=== PATIENT | female | born 1980 | race Two or more races ===

== ENCOUNTER 2020-01-10 18:39 | Inpatient (IN) | payer MEDICAID, OTHER ==
[~2020-01-10] VITALS: Ht 144.8 cm; Wt 124.6 kg
[2020-01-10 19:50] LABS: Basophils # (auto) 0 10 ^3/uL (0-0.2); Basophils % (auto) 0.7 % (0.0-2.0); Eosinophils # (auto) 0.1 10 ^3/uL (0-0.8); Hematocrit 43.4 % (36.0-46.0); Hemoglobin 14.4 g/dL (12.2-16.2); Lymphocytes # (auto) 1.5 10 ^3/uL (0.4-5.4); Lymphocytes % (auto) 28.9 % (10.0-50.0); Mean Corpuscular Hemoglobin 30.9 pg (28.0-32.0); Mean Corpuscular Hgb Conc. 33.2 g/dL (32.0-36.0); Mean Corpuscular Volume 93.2 fL (80.0-100.0); Monocytes # (auto) 0.5 10 ^3/uL (0-1.3); Monocytes % (auto) 9.5 % (0.0-12.0); Neutrophils # (auto) 3.1 10 ^3/uL (1.6-8.6); Neutrophils % (auto) 59.9 % (37.0-80.0); Nucleated Red Blood Cells % 0.1 %; Platelet Count (auto) 146 10^3/uL (140-450); Red Blood Cells 4.66 10^6/uL (4.0-5.20); White Blood Cell 5.2 10^3/uL (4.4-10.8)
[2020-01-10] MEDS ORDERED: SODIUM CHLORIDE 0.9% 1,000 ML IVB ONE (20:13)
[2020-01-10 20:15] LABS: Acetaminophen < 2.0 ug/mL (10-30); Albumin 3.2 g/dL (3.4-5.0); Anion Gap 6 (5-15); Blood Alcohol < 3.0 mg/dL (0-5); Blood Urea Nitrogen 12 mg/dL (7-18); Calcium 8.2 mg/dL (8.5-10.1); Carbon Dioxide 26 mmol/L (21-32); Chloride 109 mmol/L (98-107); Glucose 150 mg/dL (74-106); Potassium 3.5 mmol/L (3.5-5.1); Salicylate < 1.7 mg/dL (2.8-20.0); Sodium 141 mmol/L (136-145)
[2020-01-10 20:19] LABS: Alanine Aminotransferase 25 U/L (13-56); Alkaline Phosphatase 71 U/L (45-117); Aspartate Aminotransferase 18 U/L (15-37); BUN/Creatinine Ratio 13.5; Bilirubin, Total 0.3 mg/dL (0.2-1.0); GFR African American 91 mL/min; GFR Non-African American 75 mL/min; Total Protein 6.7 g/dL (6.4-8.2)
[2020-01-10 22:23] LABS: Urine Bacteria NONE SEEN /hpf (None Seen); Urine Blood 1+ /uL (Negative); Urine Mucus FEW (None Seen); Urine Specific Gravity 1.029 (1.001-1.035); Urine WBC 10 /hpf (0 - 5)
[2020-01-10 23:27] LABS: Alcohol, Urine < 3.0 mg/dL (0-10); Amphetamine Screen, Urine NEGATIVE (NEGATIVE); Barbiturate Scree,Urine NEGATIVE (NEGATIVE); Benzodiazephine Screen, Urine NEGATIVE (NEGATIVE); Cannabinoid Screen, Urine NEGATIVE (NEGATIVE); Cocaine Screen, Urine NEGATIVE (NEGATIVE); Opiate Scree,Urine NEGATIVE (NEGATIVE); Phencyclidine Screen, Urine NEGATIVE (NEGATIVE)
[2020-01-10] MEDS ORDERED: SODIUM CHLORIDE 0.9% 1,000 ML IV ONE (23:45)
[2020-01-11] MEDS ORDERED: DEXTROSE (50%) 50ML SYRG IV PRN (02:30)
[2020-01-11] MEDS: SODIUM CHLORIDE 0.9% 1,000 ML IV SCH ×3 (02:58→22:32)
[2020-01-11] MEDS: InsuLIN REG 1unit/0.01ml Soln (100units/ml) SC SCH ×5 (04:00→20:47)
[2020-01-11] MEDS: ACCU-CHEK COMFORT CURVE STRIP VI SCH ×5 (04:06→20:47)
[2020-01-11] MEDS: cefTRIAXone 1GM/50ML D5W 50 ML IV SCH (09:20)
[2020-01-11 11:17] LABS: Basophils # (auto) 0 10 ^3/uL (0-0.2); Hemoglobin 14.2 g/dL (12.2-16.2); Monocytes # (auto) 0.5 10 ^3/uL (0-1.3); Neutrophils # (auto) 5.3 10 ^3/uL (1.6-8.6); Nucleated Red Blood Cells % 0.1 %
[2020-01-11 11:20] LABS: Basophils % (auto) 0.5 % (0.0-2.0); Eosinophils # (auto) 0 10 ^3/uL (0-0.8); Eosinophils % (auto) 0.2 % (0.0-7.0); Hematocrit 43.7 % (36.0-46.0); Lymphocytes # (auto) 0.9 10 ^3/uL (0.4-5.4); Lymphocytes % (auto) 13.9 % (10.0-50.0); Mean Corpuscular Hemoglobin 31.4 pg (28.0-32.0); Mean Corpuscular Hgb Conc. 32.6 g/dL (32.0-36.0); Mean Corpuscular Volume 96.4 fL (80.0-100.0); Monocytes % (auto) 7.5 % (0.0-12.0); Neutrophils % (auto) 77.9 % (37.0-80.0); Platelet Count (auto) 47 10^3/uL (140-450); Red Blood Cells 4.53 10^6/uL (4.0-5.20); Red Cell Distribution Width 14.7 % (11.8-14.3); White Blood Cell 6.8 10^3/uL (4.4-10.8)
[2020-01-11 15:15] LABS: Calcium 7.9 mg/dL (8.5-10.1); Potassium 3.9 mmol/L (3.5-5.1)
[2020-01-11 15:18] LABS: BUN/Creatinine Ratio 13.2
[2020-01-11] MEDS ORDERED: LORazepam 2MG/ML-1ML VIAL IV PRN (20:30)
[2020-01-11] MEDS ORDERED: MIDAZOLAM HCL 1MG/1ML-2 ML VIAL IM PRN (20:45)
[2020-01-11 21:37] LABS: INR 1.02 (0.9-1.15)
[2020-01-12] MEDS: ACCU-CHEK COMFORT CURVE STRIP VI SCH ×4 (00:20→11:14)
[2020-01-12] MEDS: InsuLIN REG 1unit/0.01ml Soln (100units/ml) SC SCH ×4 (04:00→11:13)
[2020-01-12 07:39] LABS: Basophils # (auto) 0.1 10 ^3/uL (0-0.2); Eosinophils # (auto) 0.1 10 ^3/uL (0-0.8); Eosinophils % (auto) 1.2 % (0.0-7.0); Hematocrit 40.5 % (36.0-46.0); Hemoglobin 13.4 g/dL (12.2-16.2); Lymphocytes % (auto) 20.7 % (10.0-50.0); Mean Corpuscular Hemoglobin 30.9 pg (28.0-32.0); Mean Corpuscular Volume 93.5 fL (80.0-100.0); Monocytes # (auto) 0.6 10 ^3/uL (0-1.3); Monocytes % (auto) 10.9 % (0.0-12.0); Neutrophils # (auto) 3.4 10 ^3/uL (1.6-8.6); Neutrophils % (auto) 66.2 % (37.0-80.0); Nucleated Red Blood Cells % 0.1 %; Platelet Count (auto) 141 10^3/uL (140-450); Red Blood Cells 4.33 10^6/uL (4.0-5.20); Red Cell Distribution Width 14.5 % (11.8-14.3); White Blood Cell 5.1 10^3/uL (4.4-10.8)
[2020-01-12 07:56] LABS: BUN/Creatinine Ratio 13.2; Calcium 8.2 mg/dL (8.5-10.1); Potassium 3.6 mmol/L (3.5-5.1)
[2020-01-12] MEDS: SODIUM CHLORIDE 0.9% 1,000 ML IV SCH ×2 (08:13→18:31)
[2020-01-12] MEDS: cefTRIAXone 1GM/50ML D5W 50 ML IV SCH (09:42)
--- NOTE | 2020-01-12 10:48 | NUR ---
assessment Per consult help to get patient contact information. Samina MURRAY was able to speak with patient and she gave her sister Karla [phone]. The number given is out of order. No other contact in the system and no other prior visits. Addendum: 01/12/20 at 1052 by Yokasta Yap Amended: Links added.
--- NOTE | 2020-01-13 00:57 | NUR ---
Patient Brought to Unit from ER Via Wheelchair Patient AOx4, sides rails up x2 and padded w/ HOB at 30 degrees. Bed locked in lowest position, call light within reach. Sitter at bedside, will continue to monitor.
[2020-01-13 01:00] VITALS: BP_SYST 124; BP_SYST 127; BP_DIAS 77; BP_DIAS 85
[2020-01-13] MEDS ORDERED: DIVA500T53 PO (01:59)
[2020-01-13] MEDS ORDERED: DIPH-515 PO (01:59)
[2020-01-13] MEDS ORDERED: RIVA20TA PO (01:59)
[2020-01-13] MEDS ORDERED: QUET25TA37 PO (01:59)
[2020-01-13] MEDS: SODIUM CHLORIDE 0.9% 1,000 ML IV SCH (04:21)
[2020-01-13 05:06] VITALS: BP 111/74
[2020-01-13 06:18] LABS: Basophils # (auto) 0 10 ^3/uL (0-0.2); Eosinophils # (auto) 0.1 10 ^3/uL (0-0.8); Eosinophils % (auto) 2.6 % (0.0-7.0); Hematocrit 41.1 % (36.0-46.0); Hemoglobin 13.8 g/dL (12.2-16.2); Lymphocytes # (auto) 0.9 10 ^3/uL (0.4-5.4); Lymphocytes % (auto) 20.6 % (10.0-50.0); Mean Corpuscular Hemoglobin 31.4 pg (28.0-32.0); Mean Corpuscular Hgb Conc. 33.6 g/dL (32.0-36.0); Mean Corpuscular Volume 93.5 fL (80.0-100.0); Monocytes # (auto) 0.6 10 ^3/uL (0-1.3); Monocytes % (auto) 13.2 % (0.0-12.0); Neutrophils # (auto) 2.7 10 ^3/uL (1.6-8.6); Neutrophils % (auto) 62.6 % (37.0-80.0); Platelet Count (auto) 130 10^3/uL (140-450); Red Blood Cells 4.39 10^6/uL (4.0-5.20); White Blood Cell 4.3 10^3/uL (4.4-10.8)
[2020-01-13 06:32] LABS: Potassium 3.8 mmol/L (3.5-5.1)
[2020-01-13 06:40] LABS: BUN/Creatinine Ratio 14.8
[2020-01-13 09:00] VITALS: BP 109/66
[2020-01-13] MEDS: cefTRIAXone 1GM/50ML D5W 50 ML IV SCH (10:01)
[2020-01-13] MEDS ORDERED: LACTULOSE 20Gm/30ML SOLN PO ONE (12:15)
[2020-01-13] MEDS: HYDROcodone-ACET 5/325MG TAB PO PRN ×3 (12:51→22:49)
[2020-01-13 13:00] VITALS: BP 122/83
--- NOTE | 2020-01-13 13:00 | NUR ---
Lactulose refused Patient refused lactulose stating she had a BM today.
--- NOTE | 2020-01-13 14:00 | NUR ---
TELE PSYCH CONSULT was done this morning. Have not received report printout yet.
--- NOTE | 2020-01-13 14:03 | NUR ---
assessment Patient is a 40 year old female who is alert and oriented. Prior to admission patient lived at a [facility] on [facility] and needed assistance. Per patient she has no DME. Patient informed me she had been hearing voices telling her to kill herself. Patient informed me she took a bottle of pills trying to do as the voices told her. Patient informed me she has a psychiatrist Dr Jean Baptiste and she has seen her recently, but never told her about the voices. Patient informed me she was scared to tell. Patient has a history of schizophrenia. I informed patient of how important it is to communicate with her psychiatrist at all times. Patient is unstable at this time and cannot make a safety plan. Patient will need a tele psych and . I will follow up as appropriate. Addendum: 01/13/20 at 1410 by Yokasta MICHAEL Amended: Links added.
--- NOTE | 2020-01-13 15:38 | NUR ---
Tele Psych report Got ahold of them regarding report. They said they would fax it over. Gave them the [place] fax #. Awaiting report. Will place in chart when received.
--- NOTE | 2020-01-13 16:49 | NUR ---
TELE PSYCH REPORT - Contacted Dr. Santana regarding Tele Psych report recommendation for inpatient psych service. She said to put in a SS consult regarding this. Will also notify Charge nurse.
[2020-01-13 17:29] VITALS: BP 111/64
--- NOTE | 2020-01-13 19:20 | NUR ---
Opening Shift Note Assumed Patient Care from Monika Black RN. Patient is alert and oriented. Bed locked in lowest position w/ HOB at 30 degrees and call light within reach. Bed locked in lowest position. Sitter is at bedside. Patient has no s/s or distress or SOB. Patient complains of right arm and leg pain from falling at home. Patient given pain medication as prescribed for pain. Will continue to monitor.
--- NOTE | 2020-01-13 20:40 | NUR ---
Patient Complains of Pain Patient given [place] as prescribed for pain at 1922. Patient is still complaining of right side pain on arm and leg from falling at home before coming to hospital. Patient described pain saying, "My right arm and leg is throbbing and I need something stronger." Patient request stronger medication. Hospitalist paged at this time.
--- NOTE | 2020-01-13 21:30 | NUR ---
Hospitalist called back Ольга MURRAY took call. Per hospitalist, due to patient overdosing on anti-seizure medication at home and reason for admission, stronger pain medication should not be prescribed at this time. I spoke with patient regarding hospitalist response. Patient said "okay."
[2020-01-13 22:00] VITALS: BP 112/71
[2020-01-14 05:00] VITALS: BP 115/67
[2020-01-14 08:00] VITALS: BP 113/64
[2020-01-14 09:00] VITALS: BP 113/64
[2020-01-14] MEDS ORDERED: Ensure Enlive Strawberry 8oz Bottle PO ONE (10:00)
[2020-01-14] MEDS: cefTRIAXone 1GM/50ML D5W 50 ML IV SCH (10:12)
[2020-01-14] MEDS: HYDROcodone-ACET 5/325MG TAB PO PRN ×3 (10:13→21:10)
--- NOTE | 2020-01-14 12:49 | NUR ---
Est energy needs 8335-0689 kcal (30-35 kcal/kg IBW 44.3kg) Est protein needs 44-66g (1-1.5g/kg IBW 44.3kg) Will reassess prn. Addendum: 01/14/20 at [address] Amended: Links added.
[2020-01-14 13:01] VITALS: BP 113/85
[2020-01-14 17:00] VITALS: BP 120/82
[2020-01-14] MEDS: Ensure Enlive Strawberry 8oz Bottle PO SCH (17:48)
--- NOTE | 2020-01-14 19:45 | NUR ---
Opening Shift Note Assumed care of patient, awake and alert. No S/S of distress/SOB or pain. sitter at bedside for patient safety due to suicidal attempt OD on [place] and danger to self. Instructed on POC and to call for assist PRN, will continue to monitor for changes Q1hr and PRN.
--- NOTE | 2020-01-14 20:51 | NUR ---
NEURO DR SCHMIDT HERE TO SEE PATIENT UPDATED HIM ON PATIENT TELEPSYCH RECOMMENDATIONS. Addendum: 01/15/20 at 0654 by MILAGRO GONZALEZ RN RN INFORMED DR SCHMIDT PATIENT WAS COMPLANING OF THROBBING HEADACHE AND THAT PATIENT HAS SHUNT TO HEAD AND WAS TOLD IT NEEDED TO BE CHANGED.
[2020-01-14 22:00] VITALS: BP 115/66
[2020-01-14] MEDS: lamoTRIgine 25 MG TAB PO SCH (22:00)
[2020-01-15 05:00] VITALS: BP 101/70
--- NOTE | 2020-01-15 06:54 | NUR ---
PATIENT LYING IN BED ASLEEP WITH SITTER AT BEDSIDE FOR PATIENT SAFETY. WILL CONTINUE TO MONITOR PATIENT
[2020-01-15] MEDS: Ensure Enlive Strawberry 8oz Bottle PO SCH ×2 (08:00→17:34)
[2020-01-15 08:10] VITALS: BP 119/63
[2020-01-15] MEDS: Glucerna Carbsteady SHAKE Vanilla 8oz PO SCH ×3 (08:25→17:34)
[2020-01-15 09:00] VITALS: BP 119/63
[2020-01-15] MEDS: lamoTRIgine 25 MG TAB PO SCH ×2 (11:24→19:50)
[2020-01-15] MEDS: cefTRIAXone 1GM/50ML D5W 50 ML IV SCH (11:24)
[2020-01-15 13:00] VITALS: BP 113/69
[2020-01-15 17:00] VITALS: BP 115/67
--- NOTE | 2020-01-15 17:10 | NUR ---
I faxed [phone] application/tele psych consult and clinical information to [facility].
--- NOTE | 2020-01-15 18:05 | NUR ---
COVID Swab specimen sent to Laboratory.
--- NOTE | 2020-01-15 18:51 | NUR ---
Dr. Benton came over for follow up Neurology Consult.
[2020-01-15] MEDS ORDERED: LAMO25TA2 PO (19:45)
[2020-01-15] MEDS: ONDANSETRON HCL 4 MG/2 ML VIAL IV PRN (19:49)
[2020-01-15] MEDS: HYDROcodone-ACET 5/325MG TAB PO PRN (19:49)
[2020-01-15 22:00] VITALS: BP 118/70
[2020-01-16 05:00] VITALS: BP 119/64
[2020-01-16 05:29] LABS: Hematocrit 45.7 % (36.0-46.0); Hemoglobin 15.4 g/dL (12.2-16.2); Mean Corpuscular Hemoglobin 31.2 pg (28.0-32.0); Mean Corpuscular Hgb Conc. 33.6 g/dL (32.0-36.0); Mean Corpuscular Volume 92.9 fL (80.0-100.0); Platelet Count (auto) 148 10^3/uL (140-450); Red Blood Cells 4.92 10^6/uL (4.0-5.20); Red Cell Distribution Width 14.1 % (11.8-14.3); White Blood Cell 4.7 10^3/uL (4.4-10.8)
[2020-01-16 05:30] LABS: Basophils % (manual) 0 (0.0-2.0); Blast Cells 0; Metamyelocytes % 0; Myelocytes % 0; Promyelocytes % 0; Reactive Lymphocytes 0
[2020-01-16 05:46] LABS: Potassium 3.9 mmol/L (3.5-5.1)
[2020-01-16 05:49] LABS: BUN/Creatinine Ratio 16.3; Calcium 8.6 mg/dL (8.5-10.1)
[2020-01-16 06:29] LABS: Band Neutrophils % (manual) 6; Eosinophils % (manual) 1 (0-7); Lymphocytes % (manual) 34 (10.0-50.0); Monocytes % (manual) 12 (0-12)
--- NOTE | 2020-01-16 07:30 | NUR ---
Opening Shift Note Assumed care of patient, awake and alert. No S/S of distress/SOB or pain. Instructed on POC and to call for assist PRN, will continue to monitor for changes Q1hr and PRN. Bed is locked and in lowest position. Bed sitter at bedside for safety precautions due to suicide attempt. Call light within reach.
[2020-01-16 09:06] VITALS: BP 120/69
[2020-01-16] MEDS: cefTRIAXone 1GM/50ML D5W 50 ML IV SCH (10:39)
[2020-01-16] MEDS: HYDROcodone-ACET 5/325MG TAB PO PRN (10:40)
[2020-01-16] MEDS: lamoTRIgine 25 MG TAB PO SCH ×2 (10:41→22:02)
[2020-01-16] MEDS: Glucerna Carbsteady SHAKE Vanilla 8oz PO SCH ×3 (10:41→18:00)
[2020-01-16] MEDS: Ensure Enlive Strawberry 8oz Bottle PO SCH ×2 (10:41→18:00)
[2020-01-16 13:00] VITALS: BP 121/65
[2020-01-16 16:54] VITALS: BP 119/66
[2020-01-16 22:00] VITALS: BP 115/66
[2020-01-17 05:00] VITALS: BP 101/64
[2020-01-17] MEDS: HYDROcodone-ACET 5/325MG TAB PO PRN ×3 (05:03→16:41)
[2020-01-17 07:04] LABS: Basophils # (auto) 0 10 ^3/uL (0-0.2); Basophils % (auto) 0.6 % (0.0-2.0); Eosinophils # (auto) 0.1 10 ^3/uL (0-0.8); Eosinophils % (auto) 3.5 % (0.0-7.0); Hematocrit 45.2 % (36.0-46.0); Hemoglobin 15.4 g/dL (12.2-16.2); Lymphocytes # (auto) 1.1 10 ^3/uL (0.4-5.4); Lymphocytes % (auto) 26.3 % (10.0-50.0); Mean Corpuscular Hemoglobin 31.5 pg (28.0-32.0); Mean Corpuscular Hgb Conc. 34.1 g/dL (32.0-36.0); Mean Corpuscular Volume 92.3 fL (80.0-100.0); Monocytes # (auto) 0.7 10 ^3/uL (0-1.3); Monocytes % (auto) 16.1 % (0.0-12.0); Neutrophils # (auto) 2.2 10 ^3/uL (1.6-8.6); Neutrophils % (auto) 53.5 % (37.0-80.0); Nucleated Red Blood Cells % 0.2 %; Platelet Count (auto) 154 10^3/uL (140-450); Red Cell Distribution Width 13.8 % (11.8-14.3); White Blood Cell 4.1 10^3/uL (4.4-10.8)
[2020-01-17 07:22] LABS: BUN/Creatinine Ratio 18.8; Calcium 8.4 mg/dL (8.5-10.1); Potassium 4.3 mmol/L (3.5-5.1)
--- NOTE | 2020-01-17 07:30 | NUR ---
Opening Shift Note Assumed care of patient, awake and alert. No S/S of distress/SOB or pain. Sitter at bedside for safety due to patients psych hold due to a suicide attempt. Patient is compliant and calm, no signs of agitation. Instructed on POC and to call for assist PRN, will continue to monitor for changes Q1hr and PRN. Bed is locked and in lowest position. Call light within reach.
[2020-01-17 09:00] VITALS: BP 119/58
[2020-01-17] MEDS: Glucerna Carbsteady SHAKE Vanilla 8oz PO SCH ×3 (10:34→18:27)
[2020-01-17] MEDS: lamoTRIgine 25 MG TAB PO SCH ×2 (10:34→21:46)
[2020-01-17] MEDS: Ensure Enlive Strawberry 8oz Bottle PO SCH (10:34)
[2020-01-17] MEDS: cefTRIAXone 1GM/50ML D5W 50 ML IV SCH (10:34)
--- NOTE | 2020-01-17 11:30 | NUR ---
IV REMOVED FROM RIGHT AC 20G DUE TO INFILTRATION. PATIENT TOLERATED IV CATHETER REMOVAL WITH NO SIGNS OF DISTRESS, SITE DOES NOT SHOW ANY SIGNS OF INFECTION. IV CATHETER REMOVED AND WAS INTACT. APPLIED 4X4 GAUZE AND TAPE TO AREA. WILL CONTINUE TO MONITOR. IV INSERTED TO RIGHT FOREARM 22G. PATIENT TOLERATED IV INSERTION WITH NO SINGS OF DISTRESS. IV SECURED AND INFUSING WELL. WILL CONTINUE TO MONITOR.
--- NOTE | 2020-01-17 12:46 | NUR ---
Nutrition Followup Notes Pt wt is 126.0 kg/m2 Pt was sleeping when rounded this morning. Pt is with a CCHO 60g diet, appetite is good aeb ave 92% PO intake over 3 meals per RN doc. Noted pt is with D/C orders on 5150 hold to Psych facility. Will continue to monitor PO status, skin status, pertinent labs and weight trends. Will f/u in 3-5 days. Est energy needs 2053-6433 kcal (30-35 kcal/kg IBW 44.3kg) Est protein needs 44-66g (1-1.5g/kg IBW 44.3kg) Will reassess prn. LABS: CA 8.4 L, ALB 3.2 L GI: Pt had 1 BM on 01/14 per RN doc BS: 17 mod risk Refer to wound assessment report for full details. PES: Decreased energy needs r/t adiposity aeb pt with a BMI of 56.8kg/m2 and 288% of IBW Malnutrition related to morbid BMI> or equal to 40 Malnutrition related to morbid obesity Yes Comments 1) Continue to monitor po intake, labs, skin 2) Refer pt to OPD on DC 3) Continue current plan of care
[2020-01-17 13:00] VITALS: BP 128/60
--- NOTE | 2020-01-17 13:19 | NUR ---
PHONE CALL RECEIVED FROM PHARMACY REGARDING PATIENT URINE CULTURE POSITIVE FOR ENTERECOCCUS FAECALIS. PATIENT IS ON ROCEPHIN IV 1GM/50 ML. PHARMACY RECOMMEND TO DC ROCEPHIN DUE TO ROCEPHIN BEING RESISTANT AND INEFFECTIVE TO ENTERECOCCUS FAECALIS. PHARMACIST RECOMMENDS AUGMENTIN 500 MG PO BID. DOCTOR BERRY INFORMED REGARDING ORDER AND PHARMACY RECOMMENDATION. DR. SMART ORDERS WILL BE FOLLOWED ROCEPHIN WILL BE DC AND AUGMENTIN WILL BE INITIATED.
[2020-01-17 17:00] VITALS: BP 106/63
--- NOTE | 2020-01-17 18:01 | NUR ---
PHONE CALL RECEIVED FROM DEEPAK REGARDING PLACEMENT. STILL WAITING FOR PLACEMENT. CONTACTED DWAYNE BACA, [facility], [facility], [facility], [facility]IS[facility] WILL CONTINUE TO TRY AND PLACE PATIENT. NO BEDS AVAILABLE AT THE MOMENT.
[2020-01-17] MEDS: AMOXICILLIN/CLAVULAN 500 MG TAB PO SCH (21:46)
[2020-01-17 22:00] VITALS: BP 110/65
[2020-01-17] MEDS ORDERED: AMOXICILLIN/CLAVULAN 500 MG TAB PO ONE (22:00)
[2020-01-18 05:00] VITALS: BP 113/72
--- NOTE | 2020-01-18 07:04 | NUR ---
Opening Shift Note: Assumed care of patient. Patient asleep at this time. No S/S of distress/SOB or pain. Bed in lowest locked position, side rails up x 2, call light within reach. Sitter at bedside for patient safety. Patient will be instructed on POC and to call for assist PRN, will continue to monitor for changes Q1hr and PRN.
[2020-01-18] MEDS: Glucerna Carbsteady SHAKE Vanilla 8oz PO SCH ×3 (08:00→17:54)
[2020-01-18] MEDS: AMOXICILLIN/CLAVULAN 500 MG TAB PO SCH ×2 (08:38→22:20)
[2020-01-18] MEDS: HYDROcodone-ACET 5/325MG TAB PO PRN ×3 (08:38→22:20)
[2020-01-18] MEDS: lamoTRIgine 25 MG TAB PO SCH ×2 (08:38→22:19)
[2020-01-18 08:47] VITALS: BP 110/66
[2020-01-18 13:00] VITALS: BP 122/74
[2020-01-18 16:51] VITALS: BP 112/70
--- NOTE | 2020-01-18 17:07 | NUR ---
SPOKE WITH KADEN FROM [facility]. PER KADEN "THERE ARE NO BEDS AT THIS TIME."
--- NOTE | 2020-01-18 18:48 | NUR ---
CLOSING NOTE: Patient resting in bed, no S/S of distress at this time. side rails padded for patient safety. Sitter at bedside for patient safety.
--- NOTE | 2020-01-18 19:40 | NUR ---
Opening Shift Note Assumed care of patient, awake and alert, oriented x 4, follows direction. On room air with even and unlabored respirations, no S/S of distress or SOB. Patient turns independently in bed. Bed in lowest locked position with side rails up x 2 and call light within reach, sitter at bedside. Instructed on POC and to call for assist PRN, will continue to monitor for changes Q1hr and PRN.
[2020-01-18 22:00] VITALS: BP 105/65
[2020-01-19 05:11] VITALS: BP 102/69
[2020-01-19] MEDS: HYDROcodone-ACET 5/325MG TAB PO PRN ×4 (05:32→22:31)
--- NOTE | 2020-01-19 06:55 | NUR ---
Closing Note status unchanged. resting in bed with even and unlabored respirations. no s/s of distress. sitter at bedside.
--- NOTE | 2020-01-19 07:35 | NUR ---
Opening Shift Note Assumed care of patient, resting with eyes closed. Respirations appear even and unlabored on room air. No S/S of distress or SOB. Bed locked in lowest position, side rails up x 2, call light within reach. Sitter at bedside for safety. Will continue to monitor for changes Q1hr and PRN.
[2020-01-19] MEDS: Glucerna Carbsteady SHAKE Vanilla 8oz PO SCH ×3 (07:45→17:41)
[2020-01-19 09:00] VITALS: BP 107/73
[2020-01-19] MEDS: AMOXICILLIN/CLAVULAN 500 MG TAB PO SCH ×2 (09:54→22:29)
[2020-01-19] MEDS: lamoTRIgine 25 MG TAB PO SCH ×2 (09:55→22:29)
[2020-01-19 13:00] VITALS: BP 118/96
[2020-01-19] MEDS ORDERED: ENOXAPARIN SOD 40 MG/0.4 ML SYRINGE SC ONE (14:45)
--- NOTE | 2020-01-19 15:26 | NUR ---
I spoke with nurse Day regarding plan of care for this patient-she said [phone] application to be re-done today.
[2020-01-19 17:00] VITALS: BP 109/71
--- NOTE | 2020-01-19 19:30 | NUR ---
Opening Shift Note Assumed care of patient, awake and alert. No S/S of distress/SOB or pain at this time. Bed in low position with HOB in semi-Folwer's position. Call light within pt's reach. Rails padded. Insructed on POC and to call for assist PRN, will continue to monitor for changes Q1hr and PRN. Sitter in room across from FOB.
--- NOTE | 2020-01-19 20:48 | NUR ---
Notified by Sasha MURRAY pt has been re evaluated , and was placed on a new 5150, awaiting for new 5150 to be faxed . At this time there are no beds available at any of the designated facilities .
[2020-01-19 22:00] VITALS: BP 103/66
[2020-01-20 05:00] VITALS: BP 109/59
--- NOTE | 2020-01-20 07:25 | NUR ---
Opening Shift Note Assumed care of patient, awake and alert. No S/S of distress/SOB or pain. Updated on POC and instructed to call for assistance PRN, patient verbalized understanding. Bed locked in lowest position, side rails up x2, call light within reach. Sitter at bedside for safety. Will continue to monitor for changes Q1hr and PRN.
[2020-01-20] MEDS: Glucerna Carbsteady SHAKE Vanilla 8oz PO SCH ×3 (08:36→18:06)
[2020-01-20] MEDS: HYDROcodone-ACET 5/325MG TAB PO PRN ×3 (08:55→20:39)
[2020-01-20] MEDS: lamoTRIgine 25 MG TAB PO SCH ×2 (08:55→21:39)
[2020-01-20] MEDS: AMOXICILLIN/CLAVULAN 500 MG TAB PO SCH ×2 (08:55→21:39)
[2020-01-20 09:00] VITALS: BP 112/68
--- NOTE | 2020-01-20 09:03 | NUR ---
Received report from shift engineer. [facility] is still waiting for new 5150 hold.
[2020-01-20] MEDS ORDERED: ENOXAPARIN SOD 40 MG/0.4 ML SYRINGE SC SCH (10:00)
--- NOTE | 2020-01-20 12:23 | NUR ---
Nutrition Followup Notes WT: 119.5 KG Pt was sleeping when rounded this morning. Pt is with a CCHO 60g cardiac diet, with Glucerna 1 carton tid with adequate PO of > 75% x 2 days per RN doc. pt is 5150 hold Est energy needs 8004-9025 kcal (30-35 kcal/kg IBW 44.3kg), Est protein needs 44-66g (1-1.5g/kg IBW 44.3kg). Will reassess prn. LABS: CA 8.4 L GI: Pt had 2 BM 01/17 per RN doc BS: 20 low risk Refer to wound assessment report for full details. PES: Decreased energy needs r/t adiposity aeb pt with a BMI of 56.8kg/m2 and 288% of IBW Comments: Will followup up PO intake, skin status. F/u mod 3-5 days. 1) Consider regular diet as pt with no hx of DM. 2) Refer pt to OPD on DC. 3) Continue current plan of care
[2020-01-20 13:00] VITALS: BP 108/61
--- NOTE | 2020-01-20 14:21 | NUR ---
I faxed updated [phone] application and updated MD progress notes to [facility].
--- NOTE | 2020-01-20 14:29 | NUR ---
[facility] has received new 5150 hold.
--- NOTE | 2020-01-20 14:40 | NUR ---
Packet re-faxed to [facility] and [facility]. Packet faxed to [facility] and [place].
[2020-01-20 16:38] VITALS: BP 103/58
[2020-01-20] MEDS: RIVAROXABAN 20 MG TAB PO SCH (18:06)
--- NOTE | 2020-01-20 19:30 | NUR ---
Opening Shift Note Assumed care of patient, awake and alert. Supine in bed; bed in low position. No S/S of distress/SOB, and pt denies pain. Instructed on POC and to call for assist PRN; pt VU and agreement with plan. Pt talkative and cheerful. RN will continue to monitor for changes Q1hr and PRN. Nurse call light at pt's side. Sitter across from foot of bed. 5150 continues.
[2020-01-20 19:50] VITALS: BP 102/65
[2020-01-21 05:13] VITALS: BP 91/57
--- NOTE | 2020-01-21 07:28 | NUR ---
Received report from warehouse supervisor 3rd shift. There are no beds at this time. Will follow up.
--- NOTE | 2020-01-21 07:32 | NUR ---
RECEIVED PATIENT FROM [facility] SHIFT RN, ALERT AND ORIENTED X4. ASKING FOR PRN NORCO FOR 8 GENERALIZED. PLAN OF CARE DISCUSSED. BED IN LOCKED AND LOWEST POSITION. CALL LIGHT AND PHONE WITHIN REACH. WILL CONTINUE TO MONITOR Q1HR AND PRN.
[2020-01-21 08:00] VITALS: BP 99/63
[2020-01-21] MEDS: Glucerna Carbsteady SHAKE Vanilla 8oz PO SCH ×3 (08:28→18:16)
[2020-01-21] MEDS: AMOXICILLIN/CLAVULAN 500 MG TAB PO SCH ×2 (09:45→21:51)
[2020-01-21] MEDS: HYDROcodone-ACET 5/325MG TAB PO PRN ×2 (09:46→18:15)
[2020-01-21] MEDS: lamoTRIgine 25 MG TAB PO SCH ×2 (09:46→21:51)
--- NOTE | 2020-01-21 09:54 | NUR ---
DR. LOPEZ AT BEDSIDE, DISCUSSED PLAN OF CARE WITH PATIENT. NEW ORDER TO DISCONTINUE TELE MONITOR.
--- NOTE | 2020-01-21 10:00 | NUR ---
PATIENT IS CURRENTLY MED/SURGE PER MD'S ORDER. TELE MONITOR RETURNED TO ICU.
--- NOTE | 2020-01-21 12:21 | NUR ---
I called [facility] and spoke with Thuy [phone]-she said they do have female beds available. I faxed [phone] application, tele psych report, COVID test result and clinical information to [place]. I called [facility]-she said they have reached out to [facility] [place], [facility], [facility], and [facility] and there are no beds available.
[2020-01-21 13:00] VITALS: BP 113/55
[2020-01-21 16:53] VITALS: BP 121/72
[2020-01-21] MEDS: RIVAROXABAN 20 MG TAB PO SCH (18:16)
--- NOTE | 2020-01-21 18:45 | NUR ---
[facility] still aware of patient. Report received from outgoing shift. Will continue to monitor and seek placement
--- NOTE | 2020-01-21 19:20 | NUR ---
Opening Shift Note Received report from Belle MURRAY. Assumed care of patient, awake and alert. Sitter at bedside for safety. No S/S of distress/SOB or pain. Instructed on POC and to call for assist PRN, will continue to monitor for changes Q1hr and PRN. Patient awaiting inpatient psych facility placement.
[2020-01-21 22:00] VITALS: BP 97/67
--- NOTE | 2020-01-22 00:05 | NUR ---
Called the following facilities; [facility] s/w [facility]-no beds [facility] s/w My-no beds for tonight [facility] s/w Jovani-no beds [place] no answer [facility] s/w Mari no beds for tonight
[2020-01-22] MEDS: HYDROcodone-ACET 5/325MG TAB PO PRN ×3 (00:26→21:29)
--- NOTE | 2020-01-22 04:34 | NUR ---
There are still no beds available at any of the designated facilities. Will endorse to incoming shift to monitor documentation and seek further placement if still needed
[2020-01-22 04:47] VITALS: BP 101/51
--- NOTE | 2020-01-22 07:28 | NUR ---
RECEIVED PATIENT FROM [facility] SHIFT RN, ALERT AND ORIENTED X4. DENIES PAIN, NO SOB, NO S/S OF DISTRESS. PLAN OF CARE DISCUSSED. BED IN LOCKED AND LOWEST POSITION. CALL LIGHT AND PHONE WITHIN REACH. WILL CONTINUE TO MONITOR Q1HR AND PRN.
--- NOTE | 2020-01-22 07:53 | NUR ---
Received report from shift foreman. [facility] still working on placement. No beds at this time.
[2020-01-22 08:00] VITALS: BP 104/73
[2020-01-22] MEDS: Glucerna Carbsteady SHAKE Vanilla 8oz PO SCH ×3 (08:00→18:21)
[2020-01-22 09:00] VITALS: BP 104/58
--- NOTE | 2020-01-22 09:06 | NUR ---
I called [facility] [phone] and left message asking about bed availability. I re-faxed [phone] packet to [facility].
[2020-01-22] MEDS: lamoTRIgine 25 MG TAB PO SCH ×2 (09:50→21:29)
[2020-01-22] MEDS: AMOXICILLIN/CLAVULAN 500 MG TAB PO SCH (09:51)
--- NOTE | 2020-01-22 12:01 | NUR ---
I called [facility] and spoke with Art-he said they have reached out to [facility], [facility], [facility], [facility], and [facility]. Per Art they reached out to [place] yesterday and were told they had no beds available. I called [facility] again and left message asking about bed availability.
[2020-01-22 13:00] VITALS: BP 101/61
--- NOTE | 2020-01-22 16:00 | NUR ---
Verified with Charge, Catherine that patient's 5150 hold will be today at 17:33. welding supervisor, Nichelle made aware Per retail warehouse supervisor, she will contact someone to come out.
[2020-01-22 17:16] VITALS: BP 121/76
[2020-01-22] MEDS: RIVAROXABAN 20 MG TAB PO SCH (18:21)
--- NOTE | 2020-01-22 18:23 | NUR ---
patient vomited after eating dinner. Will medicate with zofran per eMAR.
--- NOTE | 2020-01-22 18:38 | NUR ---
Report received from outgoing shift. Will continue to monitor. Will call unit regarding new [phone]
[2020-01-22] MEDS: ONDANSETRON HCL 4 MG/2 ML VIAL IV PRN (18:49)
--- NOTE | 2020-01-22 19:25 | NUR ---
Opening Shift Note Received report from Belle MURRAY. Assumed care of patient, awake and alert. Sitter at bedside. No S/S of distress/SOB or pain. Instructed on POC and to call for assist PRN, will continue to monitor for changes Q1hr and PRN.
[2020-01-22 21:43] VITALS: BP 101/50
[2020-01-23 04:33] VITALS: BP 111/57
--- NOTE | 2020-01-23 04:45 | NUR ---
Late entry; Called the following facilities earlier today and just now [facility]un Farooq They still have no beds available. [facility] still no answer
--- NOTE | 2020-01-23 04:50 | NUR ---
5150 renewed by Ronni Cook RN.
[2020-01-23 08:00] VITALS: BP 114/56
[2020-01-23] MEDS: Glucerna Carbsteady SHAKE Vanilla 8oz PO SCH ×3 (08:00→18:00)
[2020-01-23 09:00] VITALS: BP 114/66
[2020-01-23] MEDS: lamoTRIgine 25 MG TAB PO SCH ×2 (09:14→22:05)
[2020-01-23] MEDS: HYDROcodone-ACET 5/325MG TAB PO PRN ×2 (09:21→20:24)
--- NOTE | 2020-01-23 11:08 | NUR ---
Nutrition Followup Notes WT:121.3 kg Pt was sleeping when rounded this morning. Pt is with a CCHO 60g cardiac diet, with Glucerna 1 carton tid with adequate PO of > 75% x 2 days per RN doc. pt is 5150 hold Est energy needs 5902-3493 kcal (30-35 kcal/kg IBW 44.3kg), Est protein needs 44-66g (1-1.5g/kg IBW 44.3kg). Will reassess prn. LABS: CA 8.4 L 01/16. no new labs today GI: Pt had 2 BM today per RN doc BS: 20 low risk Refer to wound assessment report for full details. PES: Decreased energy needs r/t adiposity aeb pt with a BMI of 56.8kg/m2 and 288% of IBW Comments: Will followup up PO intake, skin status. F/u mod 3-5 days. 1) Consider regular diet as pt with no hx of DM. 2) Refer pt to OPD on DC. 3) Continue current plan of care
[2020-01-23 13:00] VITALS: BP 102/61
[2020-01-23] MEDS: ONDANSETRON HCL 4 MG/2 ML VIAL IV PRN (13:56)
[2020-01-23 17:00] VITALS: BP 96/63
--- NOTE | 2020-01-23 18:15 | NUR ---
Tele-Psych machine at bedside.
--- NOTE | 2020-01-23 18:24 | NUR ---
S/W patient's RN (Eliana) regarding faxing new [phone]. Per RN, patient will be re-evaluated by SOC to see if patient will still need placement. Will monitor documentation for outcome of SOC.
[2020-01-23] MEDS: RIVAROXABAN 20 MG TAB PO SCH (18:39)
--- NOTE | 2020-01-23 18:54 | NUR ---
closing note Patient is comfortably resting in bed no s/s of distress/sob noted/stated. Bed at lowest locked position and call light within reach. Will endorse care to NOC RN. Sitter at bedside for safety.
--- NOTE | 2020-01-23 19:25 | NUR ---
Received report from the Day shift RN. [place]. Initial assessment done. Pt. with a sitter and 5150 hold was renewed today by the doctor.
--- NOTE | 2020-01-23 20:00 | NUR ---
Complete assessment done. Pt. is responding back to the Nurse and Caregiver. Pt. cooperative and able to express needs. Sitter @ the bedside with 5150 hold ongoing/renewed today.
--- NOTE | 2020-01-23 20:24 | NUR ---
Pt. given [place] 1 tab. for mod. pain @ the back of the head, Right Arm and chin about 6/10 scale and aching in nature. Pt. able has good swallowing reflex. Provided pt. assistance with ADL's in bed.
[2020-01-23 22:00] VITALS: BP 115/70
--- NOTE | 2020-01-23 22:05 | NUR ---
Due med.given @ this time. Pt. made aware of the med. given scheduled.
--- NOTE | 2020-01-23 22:20 | NUR ---
Able to participate Conference with the Psyche Doctor Consult with the pt. in the Room. Fernandez Green made aware of the 5150 Hold was renewed today and that the pt. overdosed certain med. called Lomotrin from home. Fernandez Green was able to speak to the pt. and pt. was responding well to the Doctor.
--- NOTE | 2020-01-24 00:30 | NUR ---
Pt. resting and sleeping. Sitter @ the bedside to safeguard pt. and maintain pt. safety.
--- NOTE | 2020-01-24 04:00 | NUR ---
Pt. sleeping and resting undisturbed. Provided assistance with ADL's and needs @ the bedside with the help of the RN and the sitter.
[2020-01-24 06:01] VITALS: BP 96/56
--- NOTE | 2020-01-24 07:37 | NUR ---
Opening Shift Note Assumed care of patient, patient comfortably sleeping in bed, on room air, breath sounds even and unlabored. No S/S of distress/SOB or pain. Instructed on POC and to call for assist PRN. Bed at lowest locked position and call light within reach. Will continue to monitor for changes Q1hr and PRN.
[2020-01-24 08:00] VITALS: BP 109/58
[2020-01-24 09:06] VITALS: BP 109/58
[2020-01-24] MEDS: Glucerna Carbsteady SHAKE Vanilla 8oz PO SCH ×3 (09:11→18:00)
[2020-01-24] MEDS: lamoTRIgine 25 MG TAB PO SCH ×2 (09:12→21:45)
[2020-01-24 12:00] VITALS: BP 123/67
--- NOTE | 2020-01-24 12:30 | NUR ---
patient is c/o nausea. Per BRADLEY LINEBACKER CREWMEMBER, patient was vomiting. Will medicate per MD orders.
[2020-01-24] MEDS: ONDANSETRON HCL 4 MG/2 ML VIAL IV PRN ×2 (12:33→22:03)
[2020-01-24] MEDS: HYDROcodone-ACET 5/325MG TAB PO PRN ×2 (12:47→18:51)
--- NOTE | 2020-01-24 14:00 | NUR ---
Patient had a BM. Patient states " I pooped worms but i flushed them because i was too embarrassed to show you". Instructed patient to notify me when she went to the restroom again.
--- NOTE | 2020-01-24 18:36 | NUR ---
Pain Patient is c/o left lower abdominal pain especially after meals. Will medicate per MD orders. Abdomen is round, non-tender. Will continue to monitor.
[2020-01-24] MEDS: RIVAROXABAN 20 MG TAB PO SCH (18:50)
--- NOTE | 2020-01-24 19:30 | NUR ---
Opening Shift Note Assumed care of patient, awake and alert. Reported pain. Pain med just given not too long ago and instructed to wait a liitle bit more to kick in the med. Instructed on POC and to call for assist PRN, will continue to monitor for changes Q1hr and PRN.
[2020-01-24 22:00] VITALS: BP 105/48
--- NOTE | 2020-01-25 00:55 | NUR ---
spoke with Tele Psych telephone service representative to fax pt's result that was done yesterday
[2020-01-25] MEDS: HYDROcodone-ACET 5/325MG TAB PO PRN ×3 (03:06→16:15)
[2020-01-25 05:00] VITALS: BP_SYST 105; BP_SYST 99; BP_DIAS 48; BP_DIAS 49
[2020-01-25] MEDS: Glucerna Carbsteady SHAKE Vanilla 8oz PO SCH ×3 (08:00→17:14)
[2020-01-25] MEDS: ONDANSETRON HCL 4 MG/2 ML VIAL IV PRN ×2 (08:19→13:11)
[2020-01-25 09:00] VITALS: BP 92/47
[2020-01-25] MEDS: lamoTRIgine 25 MG TAB PO SCH ×2 (11:10→21:40)
--- NOTE | 2020-01-25 12:49 | NUR ---
Called [facility] unit to speak with bedside RN for update on Pt and was transferred to KAMI OSMAN voicemail. Voicemail left stating renewed [phone] still has not been received. Requested she fax over [phone] to [phone]
[2020-01-25 13:00] VITALS: BP 108/68
--- NOTE | 2020-01-25 14:07 | NUR ---
Called [facility] spoke with Marilia, she advises that no beds currently available. She advises she left for Shanna Noel stating she needs an updated 5150 hold for patient. I advised that Shanna is out of the office this week, provided my extension [phone] for follow up. Per Marilia she also needs a covid test result. I will fax result from 01/14 as it was negative and previously faxed, no 2nd test done as pt is asymptomatic. Called Day rodriguez for patients room, she will fax updated 5150 to office
--- NOTE | 2020-01-25 14:40 | NUR ---
awaiting covid results and renewed 5150.
--- NOTE | 2020-01-25 14:42 | NUR ---
No beds at the following facilities: [facility]
[2020-01-25] MEDS: DOCUSATE SOD 100 MG CAP PO PRN (16:15)
[2020-01-25 17:00] VITALS: BP 102/67
[2020-01-25] MEDS: RIVAROXABAN 20 MG TAB PO SCH (18:23)
[2020-01-25] MEDS: ACETAMINOPHEN 325 MG TAB PO PRN (19:38)
[2020-01-25 21:34] VITALS: BP 97/47
[2020-01-26] MEDS: HYDROcodone-ACET 5/325MG TAB PO PRN ×4 (01:59→23:07)
[2020-01-26 05:30] VITALS: BP 117/61
[2020-01-26] MEDS: Glucerna Carbsteady SHAKE Vanilla 8oz PO SCH ×3 (07:32→17:36)
--- NOTE | 2020-01-26 07:35 | NUR ---
Opening Shift Note Assumed care of patient, awake and alert. No S/S of distress/SOB or pain. Updated on POC and instructed to call for assistance PRN, patient verbalized understanding. Bed locked in lowest position , side rail up x2 , call light within reach. Safety precautions in place, sitter at bedside. Will continue to monitor for changes Q1hr and PRN.
[2020-01-26] MEDS: lamoTRIgine 25 MG TAB PO SCH ×2 (08:45→21:32)
[2020-01-26 08:51] VITALS: BP 111/51
[2020-01-26] MEDS ORDERED: GOLYTELY 4L KIT PO ONE (11:30)
[2020-01-26] MEDS: ONDANSETRON HCL 4 MG/2 ML VIAL IV PRN ×2 (12:17→18:38)
[2020-01-26] MEDS: SUCRALFATE 1 GM/10 ML ORAL SUSP PO SCH ×3 (12:17→21:33)
[2020-01-26 12:20] LABS: INR 1.07 (0.9-1.15)
[2020-01-26 13:00] VITALS: BP 101/51
[2020-01-26] MEDS ORDERED: QUEtiapine FUMARATE 25 MG TAB PO ONE (14:15)
--- NOTE | 2020-01-26 14:22 | NUR ---
Called [facility] spoke with Tiana, as previous note in system from Dani indicates they do not have a covid test result for patient, however the patient has had a negative test and the result has been faxed twice to [facility]. Tiana confirmed they do have the result on file and do show patient is negative. I explained I just wanted to clarify as the note states they do not have a result but they have confirmed they do. Per chart notes, patient is experiencing abdominal pain, nausea and vomiting and is scheduled for EGD/Colonoscopy once she has been off her eliquis for 2 days. Pt will also need a renewed tele-psych and 5150 if applicable.
[2020-01-26 14:42] LABS: INR 1.08 (0.9-1.15); Partial Thromboplastin Time 31.4 sec (23.0-31.2)
[2020-01-26 17:00] VITALS: BP 103/61
[2020-01-26] MEDS: PANTOPRAZOLE 40 MG TAB PO SCH (21:33)
[2020-01-26] MEDS: QUEtiapine FUMARATE 25 MG TAB PO SCH (21:33)
[2020-01-26 22:02] VITALS: BP 105/64
--- NOTE | 2020-01-27 00:15 | NUR ---
PATIENT UNABLE TO FINISH GOLYTELY BEFORE BEGINNING NPO. Addendum: 01/28/20 at 0628 by FELICIA VARGAS RN RN NOTE SHOULD BE FOR 01/28/20 AT 0015
--- NOTE | 2020-01-27 01:20 | NUR ---
Received a phone call from Chris from [facility] in regards of update on patient bed availability. Advised Chris patient does not have a bed available at this time to transfer out. no other questions.
[2020-01-27 05:50] VITALS: BP 108/68
[2020-01-27] MEDS: SUCRALFATE 1 GM/10 ML ORAL SUSP PO SCH ×4 (06:47→21:29)
[2020-01-27] MEDS: Glucerna Carbsteady SHAKE Vanilla 8oz PO SCH ×3 (08:00→16:52)
[2020-01-27] MEDS: HYDROcodone-ACET 5/325MG TAB PO PRN ×2 (08:18→21:39)
[2020-01-27] MEDS: ONDANSETRON HCL 4 MG/2 ML VIAL IV PRN (08:19)
[2020-01-27 09:00] VITALS: BP 100/64
[2020-01-27] MEDS: QUEtiapine FUMARATE 25 MG TAB PO SCH ×2 (09:09→21:30)
[2020-01-27] MEDS: PANTOPRAZOLE 40 MG TAB PO SCH ×2 (09:09→21:30)
[2020-01-27] MEDS: lamoTRIgine 25 MG TAB PO SCH ×2 (09:10→21:29)
--- NOTE | 2020-01-27 10:00 | NUR ---
IV removal IV DC'd with clean sterile technique, catheter fully intact. Pressure dressing applied to site. Patient tolerated well. NOTE: [IV PAINFUL AND LEAKING]
--- NOTE | 2020-01-27 12:47 | NUR ---
UNSUCCESSFUL IV INSERTION ATTEMPTS X3 CHARGE NURSE AWARE AND WILL ATTEMPT AT A LATER TIME.
[2020-01-27 13:00] VITALS: BP 94/60
--- NOTE | 2020-01-27 14:47 | NUR ---
GOLYTELY PATIENT FINISHED 2/3 OF GOLYTELY PER MD ORDERS, PATIENT HAS HAD SEVERAL BOWEL MOVEMENTS.
[2020-01-27 17:00] VITALS: BP 94/47
--- NOTE | 2020-01-27 19:05 | NUR ---
Opening Shift Note Assumed care of patient, awake and alert. No S/S of distress/SOB or pain. Instructed on POC and to call for assist PRN, will continue to monitor for changes Q1hr and PRN. Sitter present at bedside. Seizure precautions in place. Bed locked in lowest position, HOB elevated at least 30 degrees and call light is within reach.
--- NOTE | 2020-01-27 19:25 | NUR ---
INSTRUCTED PATIENT TO FINISH GOLYTELY BEFORE 00:00
--- NOTE | 2020-01-27 20:32 | NUR ---
Hospitalist Called Hospitalist Daniel Zhang called regarding bloody stool. H and H as well as stool occult blood ordered. Continue care.
--- NOTE | 2020-01-27 20:35 | NUR ---
Stool sample collected and sent to lab
--- NOTE | 2020-01-27 21:01 | NUR ---
S/W patient's RN, waiting for new 5150 to be faxed for further placement
[2020-01-27 21:36] VITALS: BP 115/61
--- NOTE | 2020-01-28 04:37 | NUR ---
New 5150 never received Left voicemail on SW Shanna [place]ston voicemail regarding new 5150 to be faxed Called the following facilities for bed availability and they have no beds [facility]
[2020-01-28 05:00] VITALS: BP 108/64
[2020-01-28] MEDS: SUCRALFATE 1 GM/10 ML ORAL SUSP PO SCH ×4 (06:07→21:53)
[2020-01-28 06:11] LABS: Hematocrit 42.2 % (36.0-46.0); Hemoglobin 14.5 g/dL (12.2-16.2)
--- NOTE | 2020-01-28 06:30 | NUR ---
CALLED PRE-OP SPOKE WITH BEBA IN PRE OP THAT PATIENT HAD DRANK MORE OF THE GOLYTELY. PATIENT INSTRUCTED TO BE NOTHING BY MOUTH UNTIL THE START OF THE PROCEDURE. PATIENT VERBALIZED UNDERSTANDING.
--- NOTE | 2020-01-28 07:09 | NUR ---
ENDORSED CARE TO DAY SHIFT RN
[2020-01-28] MEDS: Glucerna Carbsteady SHAKE Vanilla 8oz PO SCH ×3 (07:34→17:49)
--- NOTE | 2020-01-28 07:45 | NUR ---
Received report from vending machine repairer. [facility] still waiting for new 5150.
--- NOTE | 2020-01-28 07:48 | NUR ---
Opening Note Assumed pt care from NOC RN. Pt is a/oix4 with no s/s of distress or SOB. Pt is currently sitting upright in bed with no complaints at this time. PT has been NPO since 0000 for scheduled procedures. Sitter is present in room for safety. Safety measures maintained with call light within reach, bed in lowest position and side rails up. Will continue to monitor for changes.
[2020-01-28] MEDS ORDERED: FLUMAZENIL 0.1 MG/ML INJ 10ML MDV IV ONE (08:59)
[2020-01-28] MEDS ORDERED: NALOXONE HCL 0.4 MG/ML VIAL ONE (08:59)
[2020-01-28] MEDS ORDERED: SODIUM CHLORIDE LOCK 10 ML ONE (08:59)
[2020-01-28] MEDS ORDERED: LIDOCAINE VISCOUS 2% 15ML UD ONE (08:59)
[2020-01-28] MEDS ORDERED: diphenhdrAMINE HCL 50 MG/1 ML VL ONE (09:00)
--- NOTE | 2020-01-28 09:09 | NUR ---
Pt Taken to Pre-Op Pt taken to pre0op via stretcher. Pt is a/ox4 with no s/s of distress. All questions were answered.
[2020-01-28] MEDS: fentaNYL CITRATE 100 MCG/2 ML VL ONE ×3 (09:27→09:38)
[2020-01-28] MEDS: MIDAZOLAM HCL 5 MG/ML-1ML VIAL ONE ×3 (09:27→09:38)
--- NOTE | 2020-01-28 10:23 | NUR ---
Pt Back on Unit Pt brought back to unit from PACU. Pt is a/ox4 with no s/s of distress or SOB. Pt on RA with no difficulty. Will continue to monitor. Safety measures initiated with call light within reach, bed in lowest position and side rails up. Sitter present in room.
[2020-01-28] MEDS: PANTOPRAZOLE 40 MG TAB PO SCH ×2 (10:27→21:53)
[2020-01-28] MEDS: lamoTRIgine 25 MG TAB PO SCH ×2 (10:27→21:53)
[2020-01-28] MEDS: QUEtiapine FUMARATE 25 MG TAB PO SCH ×2 (10:27→21:54)
[2020-01-28 10:41] VITALS: BP 97/56
[2020-01-28] MEDS: HYOSCYAMINE SULF 0.125 MG ODT TAB PO PRN (12:18)
--- NOTE | 2020-01-28 12:39 | NUR ---
Nutrition Followup Notes WT:121.5 kg Pt was off the floor to colonoscopy per RN when rounded this morning. Pt was NPO when rounded now resumed with regular diet Est energy needs 2263-1685 kcal (30-35 kcal/kg IBW 44.3kg), Est protein needs 44-66g (1-1.5g/kg IBW 44.3kg). Will reassess prn. LABS: CA 8.4 L 01/16. no new labs today GI: Pt had 4 BM yesterday per RN doc BS: 20 low risk Refer to wound assessment report for full details. PES: Decreased energy needs r/t adiposity aeb pt with a BMI of 56.8kg/m2 and 288% of IBW Comments: Will followup up PO intake, skin status. F/u mod 3-5 days. 1) Refer pt to [facility] on DC. 2) Continue current plan of care
[2020-01-28 14:00] VITALS: BP 89/61
--- NOTE | 2020-01-28 15:29 | NUR ---
Left voicemail at extension [phone] CM for a call back
[2020-01-28 17:00] VITALS: BP 97/61
[2020-01-28] MEDS: HYDROcodone-ACET 5/325MG TAB PO PRN (18:31)
[2020-01-28 22:00] VITALS: BP 99/58
--- NOTE | 2020-01-28 22:00 | NUR ---
OFFERED THE PATIENT NURIA. PATIENT ACCEPTED AND TOLERATED WELL
[2020-01-29] MEDS: HYDROcodone-ACET 5/325MG TAB PO PRN (00:34)
[2020-01-29 05:00] VITALS: BP 108/57
[2020-01-29] MEDS: SUCRALFATE 1 GM/10 ML ORAL SUSP PO SCH ×4 (06:08→21:21)
--- NOTE | 2020-01-29 07:01 | NUR ---
CLOSING NOTE ENDORSED CARE TO DAY SHIFT RN
--- NOTE | 2020-01-29 07:12 | NUR ---
Received report from night monitor. [facility] waiting for new 5150.
--- NOTE | 2020-01-29 07:40 | NUR ---
Opening Note Assumed pt care from CELESTINE RN. Pt is a/ox4 with no s/s of distress or SOB. Pt is currently sitting upright in bed with no complaints at this time. Sitter is present in room for safety. Discussed POC with pt. Safety measures maintained with call light within reach, bed in lowest position and side rails up. Will continue to monitor for changes.
[2020-01-29] MEDS: Glucerna Carbsteady SHAKE Vanilla 8oz PO SCH ×3 (08:28→17:51)
[2020-01-29] MEDS: PANTOPRAZOLE 40 MG TAB PO SCH ×2 (08:43→21:21)
[2020-01-29] MEDS: lamoTRIgine 25 MG TAB PO SCH ×2 (08:43→21:21)
[2020-01-29] MEDS: QUEtiapine FUMARATE 25 MG TAB PO SCH ×2 (08:43→21:22)
[2020-01-29 09:00] VITALS: BP 115/65
--- NOTE | 2020-01-29 10:54 | NUR ---
Dr Mills at Bedside MD to see pt. Discussed POC with pt. Pending psych placement. No new orders at this time.
[2020-01-29 13:00] VITALS: BP 108/55
[2020-01-29] MEDS: ONDANSETRON HCL 4 MG/2 ML VIAL IV PRN (14:32)
[2020-01-29] MEDS: HYOSCYAMINE SULF 0.125 MG ODT TAB PO PRN ×2 (14:32→18:22)
--- NOTE | 2020-01-29 16:29 | NUR ---
re-assessment Patient informed me she is no longer suicidal. Patient informed me she last heard voices telling her she is ugly and putting her down 3 days ago. Patient stated they have not talked to her in 3 days and she will not listen if they start to talk. Patient informed me she no longer has any ideas of harming herself, she stated she wants to live and has her family to live for. I have requested from Gina bedside nurse a re-peat tele psych. Addendum: 01/29/20 at 1638 by Yokasta MICHAEL Amended: Links added.
[2020-01-29 17:00] VITALS: BP 109/66
--- NOTE | 2020-01-29 17:48 | NUR ---
Tele-Psych Complete Requested report to be faxed to [facility]. Addendum: 01/29/20 at 1804 by REJI MURRAY RN RN Received report, placed in front of hard chart. Updated collar folder operator Chris.
[2020-01-29] MEDS: RIVAROXABAN 20 MG TAB PO SCH (17:51)
[2020-01-29] MEDS: ACETAMINOPHEN 325 MG TAB PO PRN (18:21)
--- NOTE | 2020-01-29 20:43 | NUR ---
S/W patients RN, patient has been discharged by Tele-psych. No longer needs placement
[2020-01-29 21:45] VITALS: BP 101/61
--- NOTE | 2020-01-29 23:45 | NUR ---
PAIN MEDICATION PATIENT COMPLAINED OF PAIN LEVEL OF 10 OUT OF 10 AT BACK OF HEAD, BACK OF NECK AND ON LOWER LEFT LEG. PATIENT ARRIVED TO UNIT STATUS POST OVERDOSE. PHYSICIAN PROVIDED WITH TYLENOL 650MG FOR PAIN. PATIENT OFFERED PAIN MEDICATION, HOWEVER PATIENT REFUSED. PATIENT EDUCATION PROVIDED ON MEDIATION AVAILABILITY. WILL PAGE HOSPITALIST REGARDING PAIN LEVEL.
--- NOTE | 2020-01-30 00:01 | NUR ---
HOSPITALIST Called/paged Hospitalist called regarding patient's pain level of 10 out of 10. Waiting for call back. Continue care.
--- NOTE | 2020-01-30 00:05 | NUR ---
Hospitalist returned call Dr. Espinoza returned call, updated on patient status and reason for call, orders for [place] 2 tabs every 6 hours for severe pain received. Continue care.
[2020-01-30] MEDS: HYDROcodone-ACET 5/325MG TAB PO PRN ×4 (00:40→23:45)
--- NOTE | 2020-01-30 04:57 | NUR ---
Patient refuse 0500 vitals
[2020-01-30] MEDS: SUCRALFATE 1 GM/10 ML ORAL SUSP PO SCH ×4 (06:15→21:11)
--- NOTE | 2020-01-30 07:33 | NUR ---
CLOSING NOTE ENDORSED CARE TO DAY SHIFT RN
--- NOTE | 2020-01-30 07:40 | NUR ---
Opening Shift Note: Assumed care of patient, awake and alert. No S/S of distress/SOB or pain. Bed in lowest locked position, side rails up x 2, call light within reach. Side rails padded for patient safety. Sitter at bedside for patient safety. Patient instructed on POC and to call for assist PRN, will continue to monitor for changes Q1hr and PRN.
[2020-01-30] MEDS: Glucerna Carbsteady SHAKE Vanilla 8oz PO SCH ×3 (08:00→17:45)
[2020-01-30 09:00] VITALS: BP 107/40
[2020-01-30] MEDS: lamoTRIgine 25 MG TAB PO SCH ×2 (09:58→21:11)
[2020-01-30] MEDS: PANTOPRAZOLE 40 MG TAB PO SCH ×2 (09:58→21:11)
[2020-01-30] MEDS: QUEtiapine FUMARATE 25 MG TAB PO SCH ×2 (09:58→21:11)
[2020-01-30 13:00] VITALS: BP 112/63
[2020-01-30] MEDS: RIVAROXABAN 20 MG TAB PO SCH (17:45)
[2020-01-30] MEDS: HYOSCYAMINE SULF 0.125 MG ODT TAB PO PRN (18:41)
--- NOTE | 2020-01-30 18:44 | NUR ---
CLOSING NOTE: Patient resting in bed. No S/S of distress at this time. Sitter at bedside for patient safety. Care endorsed to CELESTINE RN.
--- NOTE | 2020-01-30 20:00 | NUR ---
Opening Shift Note Assumed care of patient, awake and alert. No S/S of distress/SOB or pain. Instructed on POC and to call for assist PRN, will continue to monitor for changes Q1hr and PRN.Sitter at bedside, patient said she will not hurt herself
[2020-01-30 22:00] VITALS: BP 113/61
[2020-01-31] MEDS: SUCRALFATE 1 GM/10 ML ORAL SUSP PO SCH ×4 (06:19→21:23)
[2020-01-31 06:20] LABS: Basophils # (auto) 0 10 ^3/uL (0-0.2); Basophils % (auto) 0.6 % (0.0-2.0); Eosinophils # (auto) 0.1 10 ^3/uL (0-0.8); Eosinophils % (auto) 2.8 % (0.0-7.0); Hematocrit 42.2 % (36.0-46.0); Hemoglobin 14.8 g/dL (12.2-16.2); Lymphocytes # (auto) 1.8 10 ^3/uL (0.4-5.4); Lymphocytes % (auto) 35.6 % (10.0-50.0); Mean Corpuscular Hemoglobin 32.5 pg (28.0-32.0); Mean Corpuscular Hgb Conc. 35.1 g/dL (32.0-36.0); Mean Corpuscular Volume 92.5 fL (80.0-100.0); Monocytes # (auto) 0.3 10 ^3/uL (0-1.3); Monocytes % (auto) 6.5 % (0.0-12.0); Neutrophils # (auto) 2.7 10 ^3/uL (1.6-8.6); Neutrophils % (auto) 54.5 % (37.0-80.0); Nucleated Red Blood Cells % 0.1 %; Platelet Count (auto) 172 10^3/uL (140-450); Red Blood Cells 4.56 10^6/uL (4.0-5.20); Red Cell Distribution Width 13.2 % (11.8-14.3)
[2020-01-31 06:41] LABS: Potassium 3.7 mmol/L (3.5-5.1)
[2020-01-31 06:48] LABS: BUN/Creatinine Ratio 20.8; Calcium 8.5 mg/dL (8.5-10.1)
--- NOTE | 2020-01-31 07:16 | NUR ---
Report given to Chucky Varma, patient is resting no distress, sitter at beside.
[2020-01-31] MEDS: Glucerna Carbsteady SHAKE Vanilla 8oz PO SCH ×3 (08:26→17:27)
[2020-01-31 09:00] VITALS: BP 95/63
[2020-01-31] MEDS: lamoTRIgine 25 MG TAB PO SCH ×2 (09:18→21:23)
[2020-01-31] MEDS: QUEtiapine FUMARATE 25 MG TAB PO SCH ×2 (09:19→21:24)
[2020-01-31] MEDS: PANTOPRAZOLE 40 MG TAB PO SCH ×2 (09:19→21:23)
[2020-01-31] MEDS: HYDROcodone-ACET 5/325MG TAB PO PRN ×2 (09:21→17:28)
[2020-01-31 13:00] VITALS: BP 115/74
--- NOTE | 2020-01-31 16:58 | NUR ---
Nutrition Followup Notes WT:123.6 kg Pt was in the restroom when rounded this morning. Pt is with regular diet, appetite is good aeb 100% PO intake x5 meals per RN doc. Est energy needs 3122-9527 kcal (30-35 kcal/kg IBW 44.3kg), Est protein needs 44-66g (1-1.5g/kg IBW 44.3kg). Will reassess prn. LABS: [place] 3.2 L GI: Pt had 5 BM on 01/27 per RN doc BS: 22 low risk Refer to wound assessment report for full details. PES: Decreased energy needs r/t adiposity aeb pt with a BMI of 56.8kg/m2 and 288% of IBW Comments: Will followup up PO intake, skin status. F/u mod 3-5 days. 1) Refer pt to [facility] on DC. 2) Continue current plan of care
[2020-01-31] MEDS: RIVAROXABAN 20 MG TAB PO SCH (17:27)
[2020-01-31 17:28] VITALS: BP 109/71
--- NOTE | 2020-01-31 18:46 | NUR ---
CLOSING NOTE: Patient resting in bed. No S/S of distress. Sitter at bedside for patient safety. Care endorsed to [facility] RN
--- NOTE | 2020-01-31 19:47 | NUR ---
Call Center Aware , placement still is needed , At this time there are no beds available at any of the designated facilities .
[2020-01-31] MEDS: DOCUSATE SOD 100 MG CAP PO PRN (21:24)
[2020-01-31 21:42] VITALS: BP 96/55
[2020-02-01 05:15] VITALS: BP 101/58
[2020-02-01] MEDS: SUCRALFATE 1 GM/10 ML ORAL SUSP PO SCH ×3 (06:30→18:25)
--- NOTE | 2020-02-01 07:11 | NUR ---
Opening Shift Note: Assumed care of patient. No S/S of distress/SOB or pain. Bed in lowest locked position, side rails up x 2, call light within reach. Sitter at bedside for patient safety. Patient will be instructed on POC and to call for assist PRN, will continue to monitor for changes Q1hr and PRN.
--- NOTE | 2020-02-01 07:18 | NUR ---
Care report given to Chucky Gagnon, patient is resting no distress.
[2020-02-01] MEDS: Glucerna Carbsteady SHAKE Vanilla 8oz PO SCH ×3 (08:59→18:06)
[2020-02-01] MEDS: QUEtiapine FUMARATE 25 MG TAB PO SCH (08:59)
[2020-02-01] MEDS: PANTOPRAZOLE 40 MG TAB PO SCH (08:59)
[2020-02-01] MEDS: lamoTRIgine 25 MG TAB PO SCH (08:59)
[2020-02-01 09:00] VITALS: BP 104/70
[2020-02-01] MEDS: HYOSCYAMINE SULF 0.125 MG ODT TAB PO PRN (09:00)
[2020-02-01 13:00] VITALS: BP 104/60
[2020-02-01] MEDS ORDERED: PANT40T PO (14:09)
[2020-02-01] MEDS: HYDROcodone-ACET 5/325MG TAB PO PRN (14:15)
[2020-02-01 17:00] VITALS: BP 130/72
--- NOTE | 2020-02-01 18:17 | NUR ---
MRSA SWAB COLLECTED AND SENT TO LAB
--- NOTE | 2020-02-01 18:20 | NUR ---
IV removal: IV DC'd with clean sterile technique, catheter fully intact. Pressure dressing applied to site. Patient tolerated well.
[2020-02-01] MEDS: RIVAROXABAN 20 MG TAB PO SCH (18:25)
--- NOTE | 2020-02-01 18:50 | NUR ---
CLOSING NOTE: patient resting in bedside chair. No S/S of distress. Sitter at bedside Care endorsed.
--- NOTE | 2020-02-01 19:42 | NUR ---
Regular Discharge Pt notified of Taxi downstairs. Pt wheeled down to lobby with all belongings and placed into Taxi at 1935. :
== END 2020-02-01 19:35 | disposition home or self-care (01) | DRG 817 ==
LOC: ER 18:39 → TELE 18:49 → TELE-WESTW 01-13 01:10 → WEST WING 01-21 23:36
PROVIDERS: ADMIT Hospitalist; ATTEND Internal Medicine Nephrology
PROC: 0DB68ZX Excision of Stomach, Via Natural or Artificial Opening Endoscopic, Diagnostic (ICD-10-PCS; principal; 2020-01-28 09:22)
PROC: 0DJD8ZZ Inspection of Lower Intestinal Tract, Via Natural or Artificial Opening Endoscopic (ICD-10-PCS; 2020-01-28 09:22)
DX: T42.6X2A Poisoning by other antiepileptic and sedative-hypnotic drugs, intentional self-harm, initial encounter (principal); N39.0 Urinary tract infection, site not specified; F20.9 Schizophrenia, unspecified; E66.01 Morbid (severe) obesity due to excess calories; R73.9 Hyperglycemia, unspecified; K59.00 Constipation, unspecified; G40.909 Epilepsy, unspecified, not intractable, without status epilepticus; F32.9 Major depressive disorder, single episode, unspecified; N83.202 Unspecified ovarian cyst, left side; W19.XXXA Unspecified fall, initial encounter; B95.2 Enterococcus as the cause of diseases classified elsewhere; K29.70 Gastritis, unspecified, without bleeding; Z20.828 Contact with and (suspected) exposure to other viral communicable diseases; N83.209 Unspecified ovarian cyst, unspecified side; Z86.711 Personal history of pulmonary embolism; Z79.899 Other long term (current) drug therapy; Z88.8 Allergy status to other drugs, medicaments and biological substances; Z83.3 Family history of diabetes mellitus; Z68.43 Body mass index [BMI] 50.0-59.9, adult
CPT/HCPCS: 36415; 43239; 45378; 71045; 74176; 76830; 76856; 80048; 80053; 80061; 80164; 80307; 80320; 80329; 81001; 81025; 82140; 82270; 82542; 82962; 83036; 83735; 84443; 84702; 85007; 85014; 85018; 85025; 85027; 85610; 85730; 87081; 87086; 87088; 87186; 93005; G0378; J0696; J1815; J2250; J2405

== ENCOUNTER 2020-02-08 18:27 | Emergency (ER) | payer MEDICAID ==
[~2020-02-08] VITALS: Ht 160 cm; Wt 99.8 kg
[~2020-02-08 18:27] MED LIST: LAMO25TA2 PO; PANT40T PO; QUET25TA37 PO; RIVA20TA PO
[2020-02-08 21:07] LABS: Basophils # (auto) 0 10 ^3/uL (0-0.2); Basophils % (auto) 0.7 % (0.0-2.0); Eosinophils # (auto) 0.1 10 ^3/uL (0-0.8); Eosinophils % (auto) 1.6 % (0.0-7.0); Hematocrit 39.6 % (36.0-46.0); Hemoglobin 13.6 g/dL (12.2-16.2); Lymphocytes # (auto) 1.5 10 ^3/uL (0.4-5.4); Lymphocytes % (auto) 31.7 % (10.0-50.0); Mean Corpuscular Hemoglobin 31.7 pg (28.0-32.0); Mean Corpuscular Hgb Conc. 34.3 g/dL (32.0-36.0); Mean Corpuscular Volume 92.3 fL (80.0-100.0); Monocytes # (auto) 0.5 10 ^3/uL (0-1.3); Monocytes % (auto) 10.9 % (0.0-12.0); Neutrophils # (auto) 2.6 10 ^3/uL (1.6-8.6); Neutrophils % (auto) 55.1 % (37.0-80.0); Nucleated Red Blood Cells % 0.1 %; Platelet Count (auto) 176 10^3/uL (140-450); Red Blood Cells 4.29 10^6/uL (4.0-5.20); Red Cell Distribution Width 12.5 % (11.8-14.3); White Blood Cell 4.6 10^3/uL (4.4-10.8)
[2020-02-08 21:25] LABS: Albumin 3.3 g/dL (3.4-5.0); Calcium 8.1 mg/dL (8.5-10.1); Potassium 3.4 mmol/L (3.5-5.1)
[2020-02-08 21:27] LABS: INR 1.03 (0.9-1.15); Partial Thromboplastin Time 29.4 sec (23.0-31.2)
[2020-02-08 21:28] LABS: BUN/Creatinine Ratio 9.7; Bilirubin, Total 0.6 mg/dL (0.2-1.0); Total Protein 6.5 g/dL (6.4-8.2)
[2020-02-08 21:30] LABS: Urine Bacteria FEW /hpf (None Seen); Urine Blood 2+ /uL (Negative); Urine Mucus FEW (None Seen); Urine Specific Gravity 1.012 (1.001-1.035); Urine WBC 10 /hpf (0 - 5)
[2020-02-08] MEDS ORDERED: ACETAMINOPHEN 325 MG TAB PO ONE (21:45)
[2020-02-08 22:00] VITALS: BP 128/74
== END 2020-02-08 23:20 | disposition left against medical advice (07) ==
LOC: ER 18:27 → EDBD 18:27 → ER 23:20
DX: F41.9 Anxiety disorder, unspecified (principal); R07.89 Other chest pain; Z98.2 Presence of cerebrospinal fluid drainage device; Z88.8 Allergy status to other drugs, medicaments and biological substances; Z53.29 Procedure and treatment not carried out because of patient's decision for other reasons
CPT/HCPCS: 36415; 70450; 71045; 80053; 81001; 83880; 84484; 85025; 85379; 85610; 85730; 93005

== ENCOUNTER 2020-02-20 08:35 | Emergency (ER) | payer MEDICAID ==
[~2020-02-20] VITALS: Ht 149.9 cm; Wt 98.9 kg
[2020-02-20 08:52] VITALS: BP 104/63
== END 2020-02-20 10:25 | disposition home or self-care (01) ==
LOC: ER 08:35
DX: J44.1 Chronic obstructive pulmonary disease with (acute) exacerbation (principal); F41.9 Anxiety disorder, unspecified; R11.2 Nausea with vomiting, unspecified; F20.9 Schizophrenia, unspecified; Z86.711 Personal history of pulmonary embolism; Z87.891 Personal history of nicotine dependence
CPT/HCPCS: 71045